=== PATIENT | female | born 1980 | race Caucasian/White ===

== ENCOUNTER 2017-03-25 20:06 | Emergency (ER) | payer OTHER ==
[~2017-03-25] VITALS: Ht 172.7 cm; Wt 63.0 kg
[2017-03-25 20:15] VITALS: Ht 172.7 cm; Wt 63.0 kg
--- NOTE | 2017-03-25 20:32 | ERD ---
ER Documentation Chief Complaint Date/Time DATE: 03/25/17 TIME: 20:30 Chief Complaint Pleasant 36-year-old female presents to emergency department for treatment of suspected STI. Patient reports she had unprotected sex 2 days ago, reports pain with urination and green vaginal discharge. Patient reports dysuria only after urinating, denies any urgency frequency or hematuria. HPI vacation from [place], unprotected sex, dysuria. ROS All systems reviewed and are negative except as per history of present illness. Allergies Allergies: Coded Allergies: No Known Allergy (Unverified , 03/25/17) PMhx/Soc Medical and Surgical Hx: pt denies Surgical Hx History of Surgery: No Anesthesia Reaction: No Hx Neurological Disorder: No Hx Respiratory Disorders: No Hx Cardiac Disorders: No Hx Psychiatric Problems: No Hx Miscellaneous Medical Probl: Yes (Crohn's Dse) Hx Alcohol Use: No Hx Substance Use: No Hx Tobacco Use: Yes (1 pack/day) Smoking Status: Current every day smoker Physical Exam Vitals Vital Signs Date Time Temp Pulse Resp B/P Pulse Ox O2 Delivery O2 Flow Rate FiO2 03/25/17 20:15 98.0 86 18 119/65 98 Stable, triage notes reviewed Physical Exam Const: well-appearing alert well-hydrated 36-year-old female in no acute distress Head: Atraumatic Eyes: ENT: Normal External Ears, Nose and Mouth, mucous membranes Neck: Resp: Cardio: Pelvic Exam: [employer] present Abdomen: Nontender External Genitalia: Normal Skin no lesion, ulcer, or abrasion, no vesicles. Speculum: Vaginal mucosa normal, greenish thin mucousy discharge noted vagina, around cervix. Bimanual: No adnexal masses or tenderness, No CMT Skin: No petechiae or rashes Back: No midline or flank tenderness Ext: Neur: Awake and alert Psych: Normal Mood and Affect Results 24 hrs Laboratory Tests Test 03/25/17 21:06 Bedside Urine pH (LAB) 5.5 Bedside Urine Protein (LAB) 1+ Bedside Urine Glucose (UA) Negative Bedside Urine Ketones (LAB) 2+ Bedside Urine Blood 2+ Bedside Urine Nitrite (LAB) Negative Bedside Urine Leukocyte Esterase (L 3+ Current Medications Medications (Trade) Dose Ordered Sig/Pavel Route PRN Reason Start Time Stop Time Status Last Admin Dose Admin Ceftriaxone Sodium (Rocephin) 250 mg ONCE ONCE IM 03/25/17 22:00 03/25/17 22:01 DC Azithromycin (Zithromax) 1,000 mg ONCE ONCE PO 03/25/17 22:00 03/25/17 22:01 DC Metronidazole (Flagyl) 2,000 mg ONCE ONCE PO 03/25/17 22:00 03/25/17 22:01 DC Procedures/MDM This 36-year-old female visiting from [facility] reports unprotected sex 2 nights ago. Patient reports acute onset of dysuria after void, pelvic pain and green watery discharge from the vagina. Emergency room course includes diagnostic testing and a pelvic exam, exam findings support a bacterial vaginitis. Urinalysis obtained supports urinary tract infection, patient will be treated for STI with 250 mg of Rocephin intramuscularly, azithromycin 1 g p.o., highly suspected Trichomonas patient will be treated with Flagyl 2 g p.o. 1. Patient discharged home with clindamycin 300 mg twice daily 7 days to treat suspected chlamydia infection and urinary tract infection. Safe sex practices discussed, patient instructed to keep condoms in her purse. The dangers of unprotected sex were discussed. Patient is stable with no new complaints during ER course, clinically there is no current evidence to suggest pyelonephritis, acute abdomen, PID or any other emergent condition appearing to require further evaluation or hospitalization. I feel the patient is stable for discharge at this time. I have discussed results, examination findings, the treatment plan with the patient and family present prior to discharge. Indications for emergent reevaluation, side effects of medication were also discussed. All questions were answered. Patient verbalizes understanding and agrees with plan of care. Departure Diagnosis: Primary Impression: STI (sexually transmitted infection) Additional Impression: UTI (urinary tract infection) Urinary tract infection type: acute cystitis Hematuria presence: with hematuria Qualified Code: N30.01 - Acute cystitis with hematuria Patient Instructions: Cervicitis (Std), Treated, Older Adults and STDs Referrals: [facility] Additional Instructions: Thank you for for coming to the [facility] for your care today. Please ask your nurse or provider if you have questions about your care today and do not leave until all your questions have been answered. Please use any medications given as directed and follow-up with your doctor (or the doctor you were referred to) in the next 2-3 days. If you do not have a primary care doctor you may follow up at the [facility] (listed below). You may also use motrin and tylenol as needed for fever and/or pain unless instructed otherwise by your provider or nurse. Indications for more urgent follow-up have been discussed, but you may return to the Emergency Department at ANY time for any worrisome or worsening symptoms. If you have abdominal pain, please know that no test or exam you received is perfect and you should follow up within 8 hours for continued pain. If you had any imaging studies today, such as an X-Ray or CT Scan, these studies will be reviewed later by a radiologist. You will be called if there are important findings that were not identified today, so make sure the contact information you provided at registration is correct. If you received any narcotic pain control medicine today, such as Vicodin, Morphine or Dilaudid, your coordination and judgment may be affected for a number of hours. Please do not drive or operate heavy machinery, and you may want someone to assist you at home. If you were given a prescription for narcotic medication, be aware that it is very addictive- use sparingly and only if necessary. IRIS EPPS Mar 25, 2017 20:32
[2017-03-25 20:59] LABS: URINE BLOOD (Dip) POC 2+ (NEGATIVE)
[2017-03-25] MEDS ORDERED: CEFTRIAXONE 250 MG INJ IM ONE (22:00)
[2017-03-25] MEDS ORDERED: AZITHROMYCIN 250 MG TAB PO ONE (22:00)
[2017-03-25] MEDS ORDERED: metroNIDAZOLE 500 MG TAB PO ONE (22:00)
[2017-03-25] MEDS ORDERED: CLIN-73 PO (22:19)
[2017-03-25 22:25] VITALS: BP 131/67; PULSE 71; RESP 18
== END 2017-03-25 22:26 | disposition home or self-care (01) ==
LOC: FTE 20:06
DX: A64 Unspecified sexually transmitted disease (principal); N30.01 Acute cystitis with hematuria; F17.210 Nicotine dependence, cigarettes, uncomplicated
CPT/HCPCS: 81003; 87081; 87591; 96372; 99284; J0696